=== PATIENT | female | born 1960 | race Caucasian/White ===

== ENCOUNTER 2020-10-08 09:47 | Emergency (ER) | payer OTHER ==
[2020-10-08] MEDS ORDERED: HYDROCODONE/APAP 10/325 TAB ONE (10:22)
--- NOTE | 2020-10-08 11:14 | EDPHYS ---
Physician Documentation [facility] Name: Marti Eric Age: 60 yrs Sex: Female : 1960 Arrival Date: 10/08/2020 Time: 09:49 Bed 27 Private MD: ED Physician Jericho Garcia HPI: 10/08 10:17 This 60 yrs old Female presents to ER via Ambulatory with complaints of Fall kb Injury, Wrist Injury. 10:17 Details of fall: The patient fell from a height, from a ladder. Onset: The kb symptoms/episode began/occurred just prior to arrival. Associated injuries: The patient sustained right wrist, decreased range of motion, deformity, painful injury, swelling. Severity of symptoms: At their worst the symptoms were moderate, in the emergency department the symptoms are unchanged. The patient has not experienced similar symptoms in the past. The patient has not recently seen a physician. Patient reports she missed the last step of the ladder fell backward landing on right side. Complains of pain to her right wrist. Denies any other pain denies LOC.. Historical: - Allergies: 09:54 No Known Allergies; jl7 - Home Meds: 09:54 None [Active]; jl7 - PMHx: 09:54 None; jl7 - PSHx: 09:54 None; jl7 - Immunization history:: Client reports having NOT received the Covid vaccine. - Social history:: Smoking status: Patient denies any tobacco usage or history of. ROS: 10:16 Constitutional: Negative for fever, chills, and weight loss. kb 10:16 MS/extremity: Positive for injury or acute deformity, decreased range of motion, pain, swelling, tenderness, of the right wrist. 10:16 All other systems are negative. Exam: 10:16 Constitutional: This is a well developed, well nourished patient who is awake, alert, kb and in no acute distress. Head/Face: Normocephalic, atraumatic. ENT: Moist Mucous membranes Respiratory: Respirations even and unlabored. No increased work of breathing, no retractions or nasal flaring. Skin: Warm, dry with normal turgor. Normal color. Neuro: Awake and alert, GCS 15, oriented to person, place, time, and situation. Moves all extremities. Normal gait. Psych: Awake, alert, with orientation to person, place and time. Behavior, mood, and affect are within normal limits. 10:16 Musculoskeletal/extremity: Extremities: grossly normal except: noted in the right wrist: ROM: limited active range of motion due to pain, in the right wrist, Circulation is intact in all extremities. Sensation intact. Vital Signs: 09:53 BP 165 / 107; Pulse 87; Resp 19; Temp 97.3; Pulse Ox 100% ; Weight 90.72 kg; Height 5 jl7 ft. 2 in. (157.48 cm); Pain 12/06; 09:53 Body Mass Index 36.58 (90.72 kg, 157.48 cm) jl7 Procedures: 11:15 Splinting: Splint applied to right wrist using Orthoglass splint, applied by tech. kb Examined by me, post splint application: neurovascular intact, 2+ distal pulses palpable, brisk capillary refill noted, Patient tolerated well. MDM: 09:55 Patient medically screened. kb 10:16 Data reviewed: vital signs, nurses notes. Data interpreted: Pulse oximetry: on room air kb is 100 %. Interpretation: normal. 10:59 Counseling: I had a detailed discussion with the patient and/or guardian regarding: the kb historical points, exam findings, and any diagnostic results supporting the discharge/admit diagnosis, radiology results, the need for outpatient follow up, a orthopedic surgeon, to return to the emergency department if symptoms worsen or persist or if there are any questions or concerns that arise at home. 11:15 ED course: Pt made an appt with Dr Chi today at 1330. kb 10/08 09:55 Order name: Forearm Right XRAY kb 10/08 09:56 Order name: Ice pack; Complete Time: 10:02 kb 10/08 10:52 Order name: Sugar Tong Forearm Splint; Complete Time: 11:13 kb 10/08 10:52 Order name: Sling; Complete Time: 11:13 kb Administered Medications: 10:01 Drug: [place] (HYDROcodone-acetaminophen) 10 mg-325 mg 1 tabs Route: PO; ap3 11:13 Follow up: Response: Pain is unchanged, physician notified ap3 11:05 Drug: Ketorolac 60 mg Route: IM; Site: left gluteus; ap3 11:18 Follow up: Response: No adverse reaction ap3 Disposition: 17:00 Co-signature as Attending Physician, Jericho Garcia MD I agree with the assessment and kdr plan of care. Disposition Summary: 10/08/20 11:13 Discharge Ordered Location: Home kb Condition: Stable kb Diagnosis - Displaced fracture right distal radius kb Followup: kb - With: Emergency Department - When: As needed - Reason: Worsening of condition Followup: kb - With: Private Physician - When: 2 - 3 days - Reason: Recheck today's complaints, Continuance of care, Re-evaluation by your physician Discharge Instructions: - Discharge Summary Sheet kb - Radial Fracture kb Forms: - Medication Reconciliation Form kb - Thank You Letter kb - Antibiotic Education kb - Prescription Opioid Use kb - Work release form ap3 Prescriptions: - Ibuprofen 800 mg Oral Tablet - take 1 tablet by ORAL route every 8 hours As needed take with food; 30 tablet; kb Refills: 0, Product Selection Permitted - Tramadol 50 mg Oral Tablet - take 1 tablet by ORAL route every 8 hours as needed; 12 tablet; Refills: 0, kb Product Selection Permitted Signatures: Dispatcher [employer] EDMS Tiffanie Goins, CHEESE COOKER-C CHEESE COOKER-Jericho Penn MD MD kdr Leal, Jahala, RN RN jl7 Leeann Rodrigues RN RN ap3
--- NOTE | 2020-10-08 11:14 | ER ---
Nurse's Notes [facility] Name: Marti Eric Age: 60 yrs Sex: Female : 1960 Arrival Date: 10/08/2020 Time: 09:49 Bed 27 Private MD: Diagnosis: Displaced fracture right distal radius Presentation: 10/08 09:53 Chief complaint: Patient states: Fell backwards off a ladder and caught myself with my jl7 right arm. Coronavirus screen: Client denies travel out of the [place] in the last 14 days. At this time, the client does not indicate any symptoms associated with coronavirus-19. Ebola Screen: No symptoms or risks identified at this time. Initial Sepsis Screen: Does the patient meet any 2 criteria? No. Patient's initial sepsis screen is negative. Does the patient have a suspected source of infection? No. Patient's initial sepsis screen is negative. Risk Assessment: Do you want to hurt yourself or someone else? Patient reports no desire to harm self or others. Onset of symptoms was October 08, 2020. 09:53 Method Of Arrival: Ambulatory 7 09:53 Acuity: JACEK 4 jl7 Historical: - Allergies: 09:54 No Known Allergies; jl7 - Home Meds: 09:54 None [Active]; jl7 - PMHx: 09:54 None; jl7 - PSHx: 09:54 None; jl7 - Immunization history:: Client reports having NOT received the Covid vaccine. - Social history:: Smoking status: Patient denies any tobacco usage or history of. Screenin:04 Abuse screen: Denies threats or abuse. Nutritional screening: No deficits noted. ap3 Tuberculosis screening: No symptoms or risk factors identified. Fall Risk Fall in past 12 months (25 points). No secondary diagnosis (0 pts). No IV (0 pts). Ambulatory Aid- None/Bed Rest/Nurse Assist (0 pts). Gait- Normal/Bed Rest/Wheelchair (0 pts) Mental Status- Oriented to own ability (0 pts). Total Estrada Fall Scale indicates Low Risk Score (25-44 pts). Fall prevention measures have been instituted. Side Rails Up X 2 Family Present and informed to notify staff if they need to leave bedside As available Patient and Family Educated on Fall Prevention Program and strategies. Assessment: 10:02 General: Appears uncomfortable, Behavior is anxious, restless. Pain: Complains of pain ap3 in right wrist Pain began suddenly, Noted to be restless. Neuro: Level of Consciousness is awake, alert, obeys commands, Oriented to person, place, time, situation, Appropriate for age Moves all extremities. Gait is steady, Speech is normal. Cardiovascular: Denies. Respiratory: Airway is patent Respiratory effort is even, unlabored, Respiratory pattern is regular, symmetrical. GI: No signs and/or symptoms were reported involving the gastrointestinal system. : No signs and/or symptoms were reported regarding the genitourinary system. EENT: No signs and/or symptoms were reported regarding the EENT system. Musculoskeletal: Reports pain in right wrist. Injury Description: fall from step ladder. Vital Signs: 09:53 BP 165 / 107; Pulse 87; Resp 19; Temp 97.3; Pulse Ox 100% ; Weight 90.72 kg; Height 5 jl7 ft. 2 in. (157.48 cm); Pain 10; 09:53 Body Mass Index 36.58 (90.72 kg, 157.48 cm) jl7 ED Course: 09:49 Patient arrived in ED. mr 09:53 [facility] Goins[facility] kb 09:53 Jericho Garcia MD is Attending Physician. kb 09:54 Triage completed. jl7 09:54 Arm band placed on left wrist. jl7 09:56 Leeann Rodrigues, RN is Primary Nurse. ap3 10:04 Patient has correct armband on for positive identification. Bed in low position. Call ap3 light in reach. Adult w/ patient. Pulse ox on. NIBP on. Door closed. Noise minimized. 11:12 Forearm Right XRAY In Process Unspecified. EDMS 11:14 Orthoglass splint: Sugar tong splint applied on right arm. mt 11:18 No provider procedures requiring assistance completed. Patient did not have IV access ap3 during this emergency room visit. Administered Medications: 10:01 Drug: [place] (HYDROcodone-acetaminophen) 10 mg-325 mg 1 tabs Route: PO; ap3 11:13 Follow up: Response: Pain is unchanged, physician notified ap3 11:05 Drug: Ketorolac 60 mg Route: IM; Site: left gluteus; ap3 11:18 Follow up: Response: No adverse reaction ap3 Outcome: 11:13 Discharge ordered by MD. allen 11:18 Discharged to home ambulatory, with family. ap3 11:18 Condition: good 11:18 Discharge instructions given to patient, family, Instructed on discharge instructions, follow up and referral plans. medication usage, Demonstrated understanding of instructions, follow-up care, medications, splint care, Prescriptions given X 2. 11:21 Patient left the ED. ap3 Signatures: Dispatcher [employer] EDAL Tiffanie Goins, G[employer] UNDERWRITING MANAGER-Carmen Vargas ParisiAmber RN RN blade7 Yesenia Bender mt, Amanda, RN RN ap3
[2020-10-08] MEDS ORDERED: KETOROLAC 30 MG/ML INJ ONE (11:22)
[2020-10-08 11:26] VITALS: BP 165/107; TEMP 97.3; O2SAT 100
--- NOTE | 2020-10-08 11:29 | RAD REPORT ---
EXAM DESCRIPTION: RAD - Forearm Right - 10/08/2020 11:13 am CLINICAL HISTORY: PAIN COMPARISON: No comparisons FINDINGS: Distal radial impaction fracture. There is dorsal tilt of the distal radius. The fracture extends to the articular surface. Suspect a minimally displaced ulnar styloid fracture as well. No ot her fractures are seen. IMPRESSION: Distal radial impaction fracture with intra-articular extension. Suspect minimally displ aced ulnar styloid fracture.
== END 2020-10-08 11:21 | disposition home or self-care (01) ==
LOC: ER 09:47
PROC: 2W3CX1Z Immobilization of Right Lower Arm using Splint (ICD-10-PCS; principal; 2020-10-08)
DX: S52.501A Unspecified fracture of the lower end of right radius, initial encounter for closed fracture (principal); W11.XXXA Fall on and from ladder, initial encounter
CPT/HCPCS: 96372; 99284